=== PATIENT | female | born 1955 | race Caucasian/White ===

== ENCOUNTER → 2021-08-22 12:00 | Outpatient (REF) | payer OTHER, SELFPAY ==
--- NOTE | 2021-08-22 12:09 | CA_ITS ---
Transthoracic Echocardiogram Patient (Last, First, Middle): Aggie Turner, Gender: Female Date of : 1955 Age: 66 Procedure Date: 08/22/2021 Procedure Type: Transthoracic Echocardiogram Location: [facility] Height: 160.02 cm Weight: 56.7 kg BSA: 1.58 m2 Heart Rate: bpm BP: 115 / 72 mmHg Scientific Informatics Analyst: CP/TO Referring MD: Elie Bacon MD Machine Preservative Filler: Vito Mathis MD Symptoms: CVA Study Quality: Adequate ECG Rhythm: Sinus Conclusions: - Essentially normal study Findings Left Ventricle Normal left ventricular size, thickness, and systolic function. The visually estimated ejection fraction is between 60-65%. Spectral Doppler is indicative of a normal filling pattern. Right Ventricle Normal right ventricular cavity size and systolic function. Atria Both atria are normal in size. There is no evidence of interatrial shunt by agitated saline. Aortic Valve Normal aortic valve structure and function. There is no aortic valve stenosis. There is no aortic valve regurgitation. Mitral Valve Normal mitral valve structure and function. There is trace mitral valve regurgitation. There is no mitral valve stenosis. Pulmonic Valve The pulmonic valve is likely normal. Tricuspid Valve Normal tricuspid valve structure. There is trace tricuspid valve regurgitation. The right ventricular systolic pressure is normal. The right ventricular systolic pressure is 18 mmHg. Normal right atrial pressure. There is no evidence of pulmonary hypertension. Great Vessels All visible segments of the aorta are normal in size. The pulmonary artery was not well visualized. Venous The inferior vena cava is normal in size and collapses greater than 50% with inspiration. Pericardium/Pleural There is no evidence of pericardial effusion. Prior Study Comparison No prior study available for comparison. Measurements 2D Linear Measurements IVSd: 1.00 0.6-0.9/0.6-1.0 cm LVIDd: 4.05 3.9-5.3/4.2-5.9 cm LVIDd Index: 2.56 2.4-3.2/2.2-3.1 cm/m2 LVIDs: 2.09 2.0-3.6 cm LVPWd: 0.85 0.7-1.1 cm LA Diam: 3.00 2.7-3.8/3.0-4.0 cm LAIDs Index: 1.90 1.5-2.3 cm/m2 LV Mass: 144.72 67-162/88-224 g LV Mass Index: 91.60 43-95/49-115 g/m2 LVOT Diam: 1.90 3.0+(-)1.3 cm 2D Systolic Function EF 4C: 59.80 >55% EF 2C: 72.30 >55% EF BiP: 66.80 >55% Mitral Valve MV Pk E: 0.87 MV PK A: 0.68 MV Decel Time: 170.00 E/A: 1.30 E'Lateral: 12.50 E'Medial: 8.16 E/E' Med: 10.70 E/E' Lat: 7.00 PHT: 50.00 MVA PHT: 4.40 Decel Knott: 5.12 Aortic Valve AoV Pk Zohaib: 1.22 AoV Mn Zohaib: 0.84 AoV VTI: 0.29 AoV Pk Grad: 6.00 Aov Mn Grad: 3.00 CINDI Cont.VTI: 2.94 LVOT LVOT Pk Zohaib: 1.28 LVOT Mn Zohaib: 0.85 LVOT VTI: 0.30 LVOT Pk Grad: 7.00 LVOT Mn Grad: 3.00 LVOT Diam: 1.90 LVOT Area: 2.84 Diastolic Function MV Pk E: 0.87 MV Pk A: 0.68 E/A: 1.30 E'Medial: 8.16 E/E' Med: 10.70 E' Laterial: 12.50 E/E' Lat: 7.00 Right Ventricle TAPSE (mm): 23.30 TVS' Zohaib: 11.70 Tricuspid Valve TR Pk Zohaib: 1.94 TR Pk Grad: 15.00 RA Press: 3.00 RVSP: 18.00 Great Vessels Aorta Sinus of Valsalva: 2.85 2.0-3.[address] Ridge: 2.20 1.7-3.4 cm Ao Asc: 3.00 2.1-3.4 cm Updated in Other Vendor System with Status of Final Vito Mathis MD electronically signed on 08/22/2021 6:29:15 PM with status of Final
== END ==
LOC: HO.CARD 12:00
PROVIDERS: PCP Family Medicine; Visit Provider Psychiatry & Neurology Neurology
DX: G45.9 Transient cerebral ischemic attack, unspecified (principal); I63.9 Cerebral infarction, unspecified
CPT/HCPCS: 93306